=== PATIENT | male | born 1990 | race American Indian/Alaskan Native ===

== ENCOUNTER 2019-05-25 18:57 | Emergency (ER) | payer OTHER ==
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
--- NOTE | 2019-05-25 20:30 | XRay Report ---
Thoracic spine 2 views INDICATION: Back pain following injury IMPRESSION: No acute fracture or subluxation of the thoracic spine is identified. Signer Name: Jason Gerard MD Signed: 05/25/2019 8:25 PM Workstation Name: [id number]
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
[2019-05-25 21:09] VITALS: BP 141/98
== END 2019-05-25 22:25 | disposition home or self-care (01) ==
LOC: ED 18:57
DX: Z04.1 Encounter for examination and observation following transport accident (principal); F17.200 Nicotine dependence, unspecified, uncomplicated; F12.10 Cannabis abuse, uncomplicated; Z79.899 Other long term (current) drug therapy; V49.49XA Driver injured in collision with other motor vehicles in traffic accident, initial encounter; Y93.89 Activity, other specified; Y92.410 Unspecified street and highway as the place of occurrence of the external cause; Y99.8 Other external cause status
CPT/HCPCS: 72040; 72070; 72100